=== PATIENT | female | born 1955 | race Caucasian/White ===

== ENCOUNTER 2022-08-24 18:09 | Emergency (ER) | payer BC ==
[~2022-08-24] VITALS: Ht 175.3 cm; Wt 84.8 kg
--- NOTE | 2022-08-24 18:35 | NUR ---
Dr Abbasi is at bedside, medical screening exam in progress
[2022-08-24 18:57] LABS: *BILIRUBIN,URIN NEGATIVE (NEGATIVE); *BLOOD, URINE NEGATIVE (NEGATIVE); *CLARITY,URINE CLEAR (CLEAR); *COLOR,URINE LIGHT YELLOW (YELLOW); *KETONES,URINE NEGATIVE (NEGATIVE); *UROBILINOGEN,URINE 0.2 E.U./dl (NORMAL); LEUKOCYTE ESTERASE ,URINE NEGATIVE (NEGATIVE); NITRITE, URINE NEGATIVE (NEGATIVE); UGLUCOSE NEGATIVE (NEGATIVE)
[2022-08-24] MEDS ORDERED: CLONIDINE HCL 0.1 MG TABLET ONE (18:57)
[2022-08-24] MEDS ORDERED: CLONIDINE HCL 0.1 MG TABLET PO ONE (19:00)
--- NOTE | 2022-08-24 19:05 | NUR ---
Received report from LISSETTE Pat.
[2022-08-24] MEDS ORDERED: CLON0.1T PO (19:10)
[2022-08-24] MEDS ORDERED: ENAL5TAB21 PO (19:10)
--- NOTE | 2022-08-24 19:25 | NUR ---
Patient discharged to home in stable condition. A/O x 4. NAD noted. All belongings with patient. Ambulatory with a steady gait. Written and verbal after care instructions given. Patient verbalizes understanding of instructions. Stressed follow up or return to ER for worsening s/s.
[2022-08-24 19:27] VITALS: BP 185/91
== END 2022-08-24 19:26 | disposition home or self-care (01) ==
LOC: ER 18:59
DX: I11.9 Hypertensive heart disease without heart failure (principal); Z88.6 Allergy status to analgesic agent
CPT/HCPCS: 93005; A4663